=== PATIENT | female | born 1965 | race Caucasian/White ===

== ENCOUNTER → 2017-08-31 | Outpatient (CLI) | payer OTHER ==
[~2017-08-31] MED LIST: ZIAC106.25 PO; ZOLP10TA3 PO
[2017-08-31 12:15] LABS: HEMATOCRIT 42.5 % (35.0-46.0); MEAN CELL VOLUME 89.1 FL (80.0-100.0); MEAN CORPUSCULAR HEMOGLOBIN 31.4 PG (27.0-34.0); MEAN CORPUSCULAR HGB CONC 35.3 % (32.0-36.0); PLATELET COUNT 236 TH/MM3 (150-450); RED BLOOD COUNT 4.77 MIL/MM3 (4.00-5.30); RED CELL DISTRIBUTION WIDTH 13.2 % (11.6-17.2); REVIEW FLAG FINAL; WHITE BLOOD COUNT 7.6 TH/MM3 (4.0-11.0)
[2017-08-31 12:32] LABS: ALT (GPT) 60 U/L (10-53)
[2017-08-31 12:33] LABS: ANION GAP 8 MEQ/L (5-15); AST (GOT) 44 U/L (15-37); BICARBONATE 23.8 MEQ/L (21.0-32.0); BLOOD UREA NITROGEN 13 MG/DL (7-18); CHLORIDE 104 MEQ/L (98-107); GLOMERULAR FILTRATION RATE 77 ML/MIN (>89); GLUCOSE,FASTING 102 MG/DL (74-99); SODIUM (NA) 136 MEQ/L (136-145)
[2017-08-31 12:36] LABS: POTASSIUM 4.4 MEQ/L (3.5-5.1)
[2017-08-31 12:42] LABS: ALKALINE PHOSPHATASE 60 U/L (45-117); FREE T4 0.91 NG/DL (0.76-1.46)
== END ==
LOC: CLAB 10:39
PROVIDERS: ATTEND Family Medicine
DX: R53.83 Other fatigue (principal); R73.9 Hyperglycemia, unspecified; E78.00 Pure hypercholesterolemia, unspecified
CPT/HCPCS: 36415; 80053; 84439; 84443; 85027

== ENCOUNTER → 2017-11-11 | Outpatient (CLI) | payer OTHER ==
[2017-11-11 11:27] LABS: ALBUMIN 3.8 GM/DL (3.4-5.0); AST (GOT) 32 U/L (15-37); BICARBONATE 25.7 MEQ/L (21.0-32.0); BLOOD UREA NITROGEN 15 MG/DL (7-18); CALCIUM 8.8 MG/DL (8.5-10.1); CHLORIDE 105 MEQ/L (98-107); GLOMERULAR FILTRATION RATE 75 ML/MIN (>89); GLUCOSE,FASTING 171 MG/DL (74-99); SODIUM (NA) 140 MEQ/L (136-145)
[2017-11-11 11:30] LABS: ALKALINE PHOSPHATASE 59 U/L (45-117); ALT (GPT) 50 U/L (10-53); TOTAL BILIRUBIN ADULT 0.6 MG/DL (0.2-1.0); TOTAL PROTEIN 7.4 GM/DL (6.4-8.2)
== END ==
LOC: CLAB 10:35
PROVIDERS: ATTEND Family Medicine
DX: R74.8 Abnormal levels of other serum enzymes (principal)
CPT/HCPCS: 36415; 80053